=== PATIENT | male | born 1990 | race Two or more races ===

== ENCOUNTER 2022-10-10 21:16 | Emergency (ER) | payer OTHER ==
[~2022-10-10] VITALS: Ht 165.1 cm; Wt 74.8 kg
== END 2022-10-10 22:21 | disposition home or self-care (01) ==
LOC: ER 21:16
DX: M94.0 Chondrocostal junction syndrome [Tietze] (principal); Z88.8 Allergy status to other drugs, medicaments and biological substances; R07.89 Other chest pain

== ENCOUNTER 2023-02-19 11:18 | Emergency (ER) | payer OTHER ==
[~2023-02-19] VITALS: Ht 165.1 cm; Wt 72.6 kg
== END 2023-02-19 12:58 | disposition home or self-care (01) ==
LOC: ER 11:18
DX: R07.9 Chest pain, unspecified (principal); M94.0 Chondrocostal junction syndrome [Tietze]; F41.9 Anxiety disorder, unspecified

== ENCOUNTER 2023-03-01 20:57 | Emergency (ER) | payer OTHER ==
[~2023-03-01] VITALS: Ht 165.1 cm; Wt 76.2 kg
== END 2023-03-01 22:57 | disposition home or self-care (01) ==
LOC: ER 20:57
DX: M94.0 Chondrocostal junction syndrome [Tietze] (principal); Z88.7 Allergy status to serum and vaccine

== ENCOUNTER 2024-08-25 20:28 | Emergency (ER) | payer OTHER ==
[~2024-08-25] VITALS: Ht 165.1 cm; Wt 72.6 kg
[2024-08-25] MEDS ORDERED: COZAAR25 MG (20:59)
[2024-08-26] MEDS ORDERED: CEFTRIAXONE SODIUM 1,000 MG VIAL IM STA (02:28)
[2024-08-26] MEDS ORDERED: CEFTRIAXONE SODIUM 1,000 MG VIAL ONE (02:34)
[2024-08-26 03:05] LABS: HEMATOCRIT 44.3 % (39.0-48.0); MEAN CELL VOLUME 84.4 fL (80.0-100.00); MEAN CORPUSCULAR HEMOGLOBIN 28.5 pg (27.00-32.0); MEAN CORPUSCULAR HGB CONC 33.8 g/dl (32.0-36.0); PLATELET COUNT 301 K/uL (150-450); RED BLOOD COUNT 5.25 M/uL (4.00-6.00); RED CELL DISTRIBUTION WIDTH 12.9 % (11.5-14.5)
[2024-08-26 06:20] LABS: URINE APPEARANCE Cloudy; URINE BILIRRUBIN Negative (NEGATIVE); URINE BLOOD Large; URINE COLOR Dark Yellow; URINE GLUCOSE Negative (NEGATIVE); URINE KETONE Negative (NEGATIVE); URINE LEUKOCYTE Small; URINE NITRATE Negative
[2024-08-26 06:23] LABS: URINE BACTERIA 419.8 uL (0.0-1933); URINE EPITHELIAL CELLS 27.8 uL (0.0-38.8); URINE RBC 2529.8 uL (0.0-20.8); URINE WBC 633.1 uL (0.0-23.2)
[2024-08-26 06:58] LABS: URINE CAST 1.03 uL (0.0-1.40); URINE PROTEIN 300 (NEGATIVE)
[2024-08-26] MEDS ORDERED: CIPRO500 MG PO (07:15)
== END 2024-08-26 08:08 ==
LOC: ER 20:30
PROVIDERS: General Practice
DX: N39.0 Urinary tract infection, site not specified (principal); R30.0 Dysuria; R50.9 Fever, unspecified; I10 Essential (primary) hypertension
CPT/HCPCS: 36415; 74240; 96372; 99283; J0696